=== PATIENT | female | born 1985 | race Caucasian/White ===

== ENCOUNTER 2017-02-01 19:37 | Emergency (ER) | payer BC ==
[2017-02-01] MEDS ORDERED: KETOROLAC 30 MG/1 ML VIAL IVP ONE (19:52)
[2017-02-01] MEDS ORDERED: NORMAL SALINE 10 ML SYRINGE FLUSH IVP PRN (19:52)
[2017-02-01] MEDS ORDERED: ONDANSETRON 4 MG/2 ML VIAL IVP ONE (19:52)
[2017-02-01] MEDS ORDERED: Sodium Chloride 0.9% 1,000 ML PRIMARY IV ONE (19:52)
[2017-02-01 20:10] LABS: BILIRUBIN,URINE NEGATIVE (NEG); CLARITY,URINE Slightly Cloudy (CLEAR); COLOR,URINE YELLOW; GLUCOSE, URINE (UA) NEGATIVE (NEG); NITRATE,URINE NEGATIVE (NEG); OCCULT BLOOD,URINE Trace-intact (NEG); PH,URINE 7.5 (5.0-8.5); PROTEIN,URINE NEGATIVE (NEG); UROBILINOGEN,URINE 0.2 EU/dL (0.2)
[2017-02-01 20:12] LABS: SQUAMOUS EPITHELIAL CELL,UR MODERATE; URINE CRYSTALS MANY; URINE SAMPLE TYPE VOIDED SPECIMEN; WBC,URINE 0-2
[2017-02-01 20:21] LABS: BASOPHILS # (AUTO) 0.03 10*3/UL; BASOPHILS % (AUTO) 0.4 % (0-1); EOSINOPHILS # (AUTO) 0.02 10*3/UL; EOSINOPHILS % (AUTO) 0.3 % (0-8); HEMATOCRIT 36.8 % (37.0-47.0); HEMOGLOBIN 11.8 g/dL (12.0-16.0); LYMPHOCYTES # (AUTO) 1.62 10*3/uL; MEAN CORPUSCULAR HEMOGLOBIN 25.5 PG (27-31); MEAN CORPUSCULAR HGB CONC 32.1 g/dL (33-37); MEAN CORPUSCULAR VOLUME 79.7 FL (81-99); MEAN PLATELET VOLUME 10.3 FL (7.4-12.2); MONOCYTES # (AUTO) 0.67 10*3/UL (0.3-0.8); MONOCYTES % (AUTO) 9.7 % (5-15); NEUTROPHILS # (AUTO) 4.59 10*3/UL; NEUTROPHILS % (AUTO) 66.2 % (50-80); PLATELET MORPHOLOGY COMMENT NORMAL MORPHOLOGY (NORM); RBC MORPHOLOGY COMMENT NORMAL MORPHOLOGY (NORM); RED BLOOD COUNT 4.62 10^6/uL (4.20-5.40); WBC MORPHOLOGY COMMENT NORMAL MORPHOLOGY (NORM)
[2017-02-01 20:29] LABS: BLOOD UREA NITROGEN 11 mg/dL (7-22); CALCIUM 9.9 mg/dL (8.7-10.7); EST GLOMERULAR FILTRATION > 60 (>60 ml/min/1.73m(2)); SERUM ALBUMIN 4.6 g/dL (3.5-4.8)
--- NOTE | 2017-02-01 20:53 | DI ---
HISTORY: Right flank pain. Concern for nephrolithiasis. COMPARISON: None available. TECHNIQUE: CT of the abdomen and pelvis was performed without contrast and submitted for interpretat ion. FINDINGS: The heart is within normal limits. No acute pathology is seen at the lung bases. The liver is grossly unremarkable. The spleen is within normal limits. The gallbladder is surgicall y absent. There is no biliary ductal dilatation. The pancreas and adrenal glands are unremarkable. Several nonobstructing calculi are scattered about the right kidney, ranging in size from punctate up to 6 mm. A single 2 mm calculus is seen in the mid portion of the left kidney. No hydronephrosis is seen in either kidney. Additional faint feather hyperdensities in the medullary portion of both k idneys is characteristic of medullary calcinosis; nonspecific. Limited intra-abdominal fat planes li stanislaw evaluation of the ureters; however, no calculi are seen along the expected course of the ureters. There are no bladder calculi. The imaged bowel, mesentery, and omentum are unremarkable without evidence of obstruction or perforat ion. The appendix is not clearly identified, noting limitations related to absence of oral contrast. There is no lymphadenopathy by size criteria. There is a physiologic amount of ascites. No acute skeletal pathology is seen. IMPRESSION: 1. Bilateral nonobstructing renal calculi. No hydronephrosis. No ureteral or bladder calculi. 2. Medullary nephrocalcinosis; nonspecific. 3. No other acute findings.
[2017-02-01] MEDS ORDERED: Ondansetron ODT Tab 4 MG TAB PO ONE (21:34)
[2017-02-01] MEDS ORDERED: Ondansetron ODT Tab 4 MG TAB PO SCH (21:45)
[2017-02-01 22:15] VITALS: RESP 20; TEMP 98.2
--- NOTE | 2017-02-02 05:51 | PDOC ---
Abdomen/Flank HPI - General Chief Complaint: Genitourinary Complaint Stated Complaint: "bladder pain" Date Seen by Provider: 02/01/17 Time Seen by Provider: 19:42 Source: POSITIVE: Patient Exam Limitations: POSITIVE: No limitations Nurse's Notes Reviewed & Considered: Yes - History of Present Illness Initial Comments: The patient is a 31-year-old female. She states around 10 AM she developed some suprapubic discomfort and cramping. She also developed some nausea and vomited 4 times. She states that when she was vomiting she experienced a "pop" right paralumbar area. No fevers. No chills. No hematemesis, melena, hematochezia, hematuria. She's had a cholecystectomy. She states she has had "kidney stones" in the past. Body Location Affected: REPORTS: Abdomen, Back Timing: REPORTS: Abrupt Duration: <24 hours (Approximately 9 hours) Severity: Moderate Quality: REPORTS: Cramping, "Pain" Abdominal Pain Onset Location: REPORTS: Suprapubic Abdominal Pain Radiation: REPORTS: No radiation Context: REPORTS: None Modifying Factors: improves with: Vomiting Associated Symptoms: REPORTS: Back pain (Right paralumbar as above), Vomiting Similar Symptoms Previously: No Recent Care Received: REPORTS: Denies Any Prior Injuries Related to Current Complaint?: No - Patient Home Medications Home Medications: Home Medications Topiramate 75 mg PO DAILY 02/01/17 Verapamil HCl 40 mg PO DAILY 02/01/17 lamoTRIgine Tab [LaMICtal Tab] 200 mg PO DAILY 02/01/17 levETIRAcetam Tab [Keppra Tab] 500 mg PO DAILY 02/01/17 - Patient Allergies Allergies/Adverse Reactions: Allergies Allergy/AdvReac Type Severity Reaction Status Date / Time nitrofurantoin Allergy RASH Verified 02/01/17 19:48 [From Macrobid] nitrofurantoin Allergy RASH Verified 02/01/17 19:48 macrocrystalline [From Macrobid] Past Medical History - heen HEENT History: Denies History Cardiovascular History: Denies History Respiratory History: Denies History Gastrointestinal History: Denies History Genitourinary History: Recurrent UTI, Kidney Stones Additional Genitourinary History: "after giving " Endocrine History: Denies History Musculoskeletal History: Denies History Neurological History: Seizures, Migraines Blood Disorders: Denies History Psychiatric History: Denies History Female Reproductive History: Denies History Obstetrical History: Denies History Cancer History: Denies History In Past Year Been Physically Harmed or Verbally Threatened: No History of MDRO: No Tobacco Use: Never Smoker Alcohol Use: None Substance Use Type: None Previous Surgical History: Yes Type / Date of Surgery: Lab erin, Anesthesia Reactions: No Significant Family History: Heart disease Past Medical History Reviewed: Reviewed - No Changes ROS - Limitations ROS Limitations: No Limitations Constitution: REPORTS: Denies Symptoms Cardiovascular: REPORTS: Denies Cardiac Symptoms Respiratory: REPORTS: Denies Resp Symptoms Neurological: REPORTS: Denies Neuro Symptoms Gastrointestinal: REPORTS: Abdominal Pain, Nausea, Vomitting Endocrine: REPORTS: Denies Symptoms Musculoskeletal: REPORTS: Back Pain (Right paralumbar area) Genitourinary: REPORTS: Denies Symptoms Eyes: REPORTS: Denies Symptoms ENT: REPORTS: Denies Symptoms Skin: REPORTS: Denies Skin Symptoms Lympathic: REPORTS: Denies Lympathic Symptoms Immunologic: POSITIVE: Denies Symptoms Psychiatric: POSITIVE: Denies Psych Symptoms Abdominal/Flank Pain PE - General Appearance General Appearance: POSITIVE: Alert, Cooperative, No Acute Distress, No Evidence of Trauma - HEENT HEENT: POSITIVE: Head Inspection Nml, Eyes Inspection Nml, Ears Inspection Nml, Nose Inspection Nml, Oral/Dental Inspect. Nml, Pharynx Inspect. Nml, PERRL, EOMI - Neck Neck: POSITIVE: Normal Inspection, No Apparent Injury - Respiratory Respiratory: POSITIVE: No Respiratory Distress, Breath Sounds Normal, Chest Non- Tender - Cardiovascular Cardiovascular: POSITIVE: Regular Rate and Rhythm, Heart Sounds Normal, Equal Pulses, Strong Pulses Peripheral Pulses: Radial (R): 2+, Radial (L): 2+ - Abdomen Abdomen: Soft: (All Quadrants), Normal Bowel Sounds: (All Quadrants), Denies Tenderness: (All Quadrants), No Splenomegaly: (All Quadrants), No Hepatomegaly: (All Quadrants), No Guarding: (All Quadrants), No Rebound: (All Quadrants), No Palpable Pulse: (All Quadrants), No Palpabale Mass: (All Quadrants), No Distention: (All Quadrants), No Rigidity: (All Quadrants) Additional Abdominal Details: Abdominal examination shows bowel sounds to be active. There is some mild discomfort expressed on firm direct palpation of the suprapubic area, without masses, organomegaly or rebound. 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, Motor Normal, Sensation Normal, 5, 6 - Psychological Psychiatric: POSITIVE: Affect Appropriate, Mood Appropriate Images - Complete Complete: 1 - Discomfort on palpation 2 - Discomfort on palpation Abdomen Progress - Results Reviewed by me Xrays/CTs/US Reviewed by me: Yes Discussed with Radiologist: Yes Radiology Findings: Normal Lab Results Reviewed: Yes Lab Results:: Laboratory Results 02/01/17 02/01/17 Range/Units 20:00 20:04 WBC 6.94 (4.8-10.8) 10^3/uL RBC 4.62 (4.20-5.40) 10^6/uL Hgb 11.8 L (12.0-16.0) g/dL Hct 36.8 L (37.0-47.0) % MCV 79.7 L (81-99) FL MCH 25.5 L (27-31) PG MCHC 32.1 L (33-37) g/dL RDW Std Deviation 42.4 (39-50) fL RDW Coeff of Caroline 14.8 H (11.5-14.5) % Plt Count 250 (140-350) 10*3/uL MPV 10.3 (7.4-12.2) FL Immature Gran % (Auto) 0.1 (0-5) % Neut % (Auto) 66.2 (50-80) % Lymph % (Auto) 23.3 (10-50) % Faulkner % (Auto) 9.7 (5-15) % Eos % (Auto) 0.3 (0-8) % Baso % (Auto) 0.4 (0-1) % Immature Gran # (Auto) 0.01 10*3/UL Neut # (Auto) 4.59 10*3/UL Lymph # (Auto) 1.62 10*3/uL Faulkner # (Auto) 0.67 (0.3-0.8) 10*3/UL Eos # (Auto) 0.02 10*3/UL Baso # (Auto) 0.03 10*3/UL WBC Morphology Comment Normal morphology (NORM) Plt Morphology Comment Normal morphology (NORM) RBC Morph Comment Normal morphology (NORM) Sodium 140 (135-145) meq/L Potassium 4.1 (3.8-5.2) meq/L Chloride 107 (98-112) meq/L Carbon Dioxide 20 L (23-33) meq/L Anion Gap 13 (5-20) BUN 11 (7-22) mg/dL Creatinine 1.0 (0.50-1.20) mg/dL Estimated GFR > 60 (>60 ml/min/1.73m(2)) BUN/Creatinine Ratio 11.00 (6-20) Glucose 84 (78-110) mg/dL Calculated Osmolality 287.0 (267-292) mOsm/kg Calcium 9.9 (8.7-10.7) mg/dL Total Bilirubin 0.3 (0.3-1.2) mg/dL AST 24 (8-39) IU/L ALT 28 (9-52) IU/L Alkaline Phosphatase 51 (38-126) IU/L Total Protein 7.3 (6.1-8.0) g/dL Albumin 4.6 (3.5-4.8) g/dL Globulin 2.7 (2.50-4.10) g/dL Albumin/Globulin Ratio 1.70 (1.3-2.0) mg/g Ur Collection Type Voided specimen Urine Color Yellow Urine Clarity Slightly cloudy (CLEAR) Urine pH 7.5 (5.0-8.5) Ur Specific Hamilton 1.015 (1.005-1.030) Urine Protein Negative (NEG) mg/dl Urine Glucose (UA) Negative (NEG) mg/dL Urine Ketones Negative (NEG) Urine Occult Blood Trace-intact H (NEG) Urine Nitrate Negative (NEG) Urine Bilirubin Negative (NEG) Urine Urobilinogen 0.2 (0.2) EU/dL Ur Leukocyte Esterase Trace (NEG) Urine RBC 3-5 (NONE) /hpf Urine WBC 0-2 (NONE) Ur Squamous Epith Cells Moderate (NONE) Ur Renal Epithelial Cell None (NONE) Urine Crystals Many Urine Bacteria None (NONE) Urine Casts None (NONE) Urine Mucus None (NONE) Urine Trichomonas None (NONE) Urine Yeast None (NONE) Ur Culture Indicated? Culture not set - Patient's Progress Pain Medication Addressed: POSITIVE: Yes (Recommended Tylenol) School/Work Release Addressed: POSITIVE: Not Applicable Re-examine Time: 21:10 Re-Examine Comment: Patient rested comfortably in the emergency room. States she feels better on discharge Status: POSITIVE: Improved, Re-Examined - Consult Counseled: POSITIVE: Patient, RE: Lab Results, RE: Radiology Results, RE: DX, RE : Need for F/U Patient Care Time - Estimated PCT Patient Care Time (In Minutes): 50 Vital Signs - VS Reviewed Vital Signs Reviewed: Yes Discharge Clinical Impression: Nausea & vomiting, Abdominal pain Discharge Disposition: Discharged to Home Condition: Stable Patient Instructions Given at Discharge: Acute Nausea and Vomiting (ED) Additional Instructions: Clear liquid diet for 12 hours. Zofran, one dissolved on the tongue every 4-6 hours as necessary for nausea. Return anytime if condition worsens. Follow-up with your primary care provider. CT scan of the abdomen was normal and there is no evidence of kidney stones. He can take Tylenol every 4 hours as necessary for abdominal discomfort. Blood and urine tests were normal. Follow Up With: NONE,NONE [Primary Care Provider] - (Instructions as above. Follow-up with your primary care provider. Return here as necessary.)
== END 2017-02-01 21:36 | disposition home or self-care (01) ==
LOC: ER 19:37
DX: R10.11 Right upper quadrant pain (principal); M54.5 Low back pain; R11.2 Nausea with vomiting, unspecified
CPT/HCPCS: 74176; 80053; 81001; 81003; 85025; 96361; 96374; 96375; 99283 ×2; J1885; J2405; J7030